=== PATIENT | female | born 1990 | race Caucasian/White ===

== ENCOUNTER 2020-07-04 21:17 | Emergency (ER) | payer BC, OTHER ==
[2020-07-04 21:21] VITALS: BP 111/70; PULSE 108; TEMP 98.2; BMI 28.3
[2020-07-04] MEDS ORDERED: CLINDAMYCIN HCL 150 MG CAPSULE (FP) PO ONE (22:29)
[2020-07-04] MEDS ORDERED: CLINDAMYCIN HCL 150 MG CAPSULE (FP) ONE (22:43)
== END 2020-07-04 22:52 | disposition home or self-care (01) ==
LOC: JER 21:17
DX: L03.116 Cellulitis of left lower limb (principal)
CPT/HCPCS: 99284-25